=== PATIENT | female | born 1950 | race Caucasian/White ===

== ENCOUNTER 2022-02-16 16:15 | Outpatient (REF) | payer MEDICARE, BC, SELFPAY ==
--- NOTE | 2022-02-16 15:30 | PAPNONF_PTH ---
PATIENT: Patricia Freed LOC: [facility] U#:[id number] AGE/SX: 71/F ROOM: RE02/16/[address]: Hugh Ramirez MD : 1950 BED: DIS: 02/16/2022 SPEC #: [id number] RECD: 02/17/22 12:57 STATUS: HOA REBelen #: [id number] HARVINDER: 02/16/22 15:[address]: Hugh Ramirez [facility] Cytology RECD BY: Yahaira Pathak ENTERED: 02/17/22 12:58 SP TYPE: MARIANNE ROJAS DR: Govind Marino Tissues: 1 - BODY FLUID CYTO-FINE NEEDLE [facility] Procedures: BODY FLUID CYTO-FINE NEEDLE [facility] Comments: [id number]
== END 2022-02-16 16:16 | disposition home or self-care (01) ==
LOC: LBN 16:15
PROVIDERS: PCP Family Medicine Adult Medicine; Visit Provider Otolaryngology
DX: K11.8 Other diseases of salivary glands (principal)
CPT/HCPCS: 88104